=== PATIENT | female | born 1950 | race African-American/Black ===

== ENCOUNTER 2019-12-02 02:28 | Emergency (ER) | payer OTHER ==
[~2019-12-02] VITALS: Ht 167.6 cm; Wt 74.8 kg
[2019-12-02 03:10] VITALS: BP 148/49
== END 2019-12-02 03:10 | disposition home or self-care (01) ==
LOC: ED 02:28
DX: K11.8 Other diseases of salivary glands (principal); J44.9 Chronic obstructive pulmonary disease, unspecified; I10 Essential (primary) hypertension; E11.9 Type 2 diabetes mellitus without complications; Z85.850 Personal history of malignant neoplasm of thyroid